=== PATIENT | female | born 1965 | race Caucasian/White ===

== ENCOUNTER → 2017-11-26 | Outpatient (CLI) | payer OTHER ==
[~2017-11-26] MED LIST: ABAC300; ALBU.083IS IH; ALBU3IS INH; ALBU90OI6 INH; ALBU90OI61 INH; AMIT50 PO; AMPI500; ASPI325 PO; ASPI81CH PO; ASPI81EC; ASPI81EC PO; AZIT250 PO; Albuterol2.5 MG/0.5 INH; BUDE6HFA INH; Bentyl10 MG PO; Black Cohosh40 M1 PO; Brovana15 MCG/2 M INH; CALCAVITDA PO; CALCIUM 600 +1 EA11 PO; CEPH500 PO; CLON1; CODGUAEL PO; CYAN1000 PO; CYCL10 PO; DIAZ5; DIAZ5 PO; DOC250 PO; FISH1000 PO; FLUSAL2505 IH; FLUSAL2505 INH; FLUSAL5005; FURO20 PO; FURO40 PO; Ferrous Sulfat325 MG PO; Fish Oil 10001000 MG PO; Flexi Joint Ta1 EAC1 PO; Fludrocortison0.1 MG PO; GABA100 PO; GLUC500; HYDACE5; HYDACE5 PO; HYDMOR2; HYDR1TAB94 PO; IRON150C PO; ISOMON30 PO; Imdur30 MG PO; KETO10 PO; L-LYSINE500 MG PO; METO25 PO; METO25ER PO; Mobic15 MG PO; NAPR500; NAPR500 PO; NAPR550 PO; NICO21TP; NICO7; NITR.4SL SL; NUTRISOURCE FI205 GM PO; OMEP20ER PO; OXYACE5T PO; OXYB5 PO; Omeprazole20 M1 PO; PARO20; POTCHL20ER PO; PRAVASTATIN PO; PRED20 PO; PROACE100 PO; PROC5; PROM25; PROM25 PO; Perforomis20 MCG/2 M; Pravachol40 MG PO; Prednisone20 MG PO; RANI150 PO; RXLORA1 PO; SIMETHICONE125 MG PO; SUCR1 PO; TIOT18 IH; TIOT18 INH; TIOT18 PO; TOLT2ER PO; TOLT4 PO; Vitamin B Comple1 EA PO; [UNRECOGNIZED DRUG - OTHER] PO
[2017-11-26 15:27] LABS: BASOPHILS ABSOLUTE AUTO 0.04 K/mm3 (0.00-0.23); BASOPHILS PERCENT AUTO 1 % (0-2); EOSINOPHILS ABSOLUTE AUTO 0.13 K/mm3 (0.00-0.68); EOSINOPHILS PERCENT AUTO 2 % (0-6); Hematocrit 41.6 % (33.0-51.0); Hemoglobin 14.3 g/dL (11.5-16.0); IMMATURE GRAN ABSOLUTE AUTO 0.02 K/mm3 (0.00-0.10); IMMATURE GRAN PERCENT AUTO 0 % (0-1); LYMPHOCYTES ABSOLUTE AUTO 3.22 K/mm3 (0.84-5.20); LYMPHOCYTES PERCENT AUTO 40 % (21-46); MONOCYTES ABSOLUTE AUTO 0.61 K/mm3 (0.16-1.47); MONOCYTES PERCENT AUTO 8 % (4-13); Mean Corpuscular HGB 31.5 pg (26.0-34.0); Mean Corpuscular HGB Conc 34.4 g/dL (31.5-36.5); Mean Corpuscular Volume 92 fL (80-100); Mean Platelet Volume 9.6 fL (9.1-12.4); NEUTROPHILS ABSOLUTE AUTO 3.99 K/mm3 (1.96-9.15); NEUTROPHILS PERCENT AUTO 50 % (41-73); Platelet Count 298 K/mm3 (150-400); RDW Coefficient Variation 11.7 % (11.7-14.2); Red Blood Cell Count 4.54 M/mm3 (3.80-5.20); White Blood Cell Count 8.01 K/mm3 (4.00-11.30)
[2017-11-26 15:43] LABS: Anion Gap 11 mmol/L (6-16); Blood Urea Nitrogen 11 mg/dL (8-24); Bun/Creatinine Ratio 13.8 (12.0-20.0); CO2, Blood 27 mmol/L (21-32); Calcium, Blood 9.3 mg/dL (8.5-10.1); Chloride, Blood 103 mmol/L (98-108); Glomerular Filtration Rate >60 (60-); Glucose, Blood 90 mg/dL (70-99); Sodium, Blood 141 mmol/L (136-145)
[2017-11-26 15:44] LABS: Troponin I <0.017 ng/mL (0.000-0.040)
== END | disposition home or self-care (01) ==
LOC: LAB EV 15:20 → LAB SHORT 15:20
PROVIDERS: Family Medicine
DX: R07.9 Chest pain, unspecified (principal)
CPT/HCPCS: 80048; 83880; 84484; 85025; 85379

== ENCOUNTER → 2019-09-16 | Outpatient (CLI) | payer OTHER | END | disposition home or self-care (01) | LOC: LAB SHORT 15:10 → LAB 15:10 | DX: N39.0 Urinary tract infection, site not specified (principal) | CPT/HCPCS: 87086 ==

== ENCOUNTER → 2019-09-20 | Outpatient (CLI) | payer OTHER ==
[2019-09-20 17:02] LABS: Influenza A Negative (NEGATIVE); Influenza B Negative (NEGATIVE)
== END | disposition home or self-care (01) ==
LOC: LAB SHORT 16:07 → LAB 16:07
PROVIDERS: Family Medicine
DX: R05 Cough (principal)
CPT/HCPCS: 87804

== ENCOUNTER 2020-01-18 07:16 | Day surgery (SDC) | payer OTHER ==
[~2020-01-18] VITALS: Ht 160 cm; Wt 86.7 kg
[~2020-01-18 07:16] MED LIST changes: +ATOR20 PO; +CONEST.625 PO; +DAIRY RELIE3000 UNIT PO; +DELTASONE20 MG PO; +FAMO20 PO; +FLUT.05NI; +GABA300; +GABA600 PO; +Garlic1 EAC1 PO; +IMITREX25 MG PO; +MONT10T PO; +MULTIVITAMINS1 EAC3 PO; +ONDA4 PO; +PANCREAZE DR 11 EAC2; +PANT40 PO; +PREMARIN; +SUCRALFATE1 G1 PO; +TIZANIDINE HCL2 MG PO; +VALA500 PO; +ZYRTEC10 M2 PO
--- NOTE | 2020-01-18 08:22 | NUR ---
PT AMBULATORY INTO ENDO 2 FOR PREOP. History, Chart, Medications and Allergies reviewed before start of procedure. Lungs clear T/O to Auscultation. Patient confirms NPO status and agrees with scheduled surgery. Patient States Post-Procedure ride home has been arranged.
--- NOTE | 2020-01-18 08:59 | NUR ---
01/18/20 0859 Concha Hughes History, Chart, Medications and Allergies reviewed before start of procedure.NPATIENT CONFIRMS NPO STATUS AND AGREES WITH SCHEDULED PROCEDURE.MONITOR INTACT WITH CONTINUOUS PULSE OXIMETRY AND INTERMITTENT BP. O2 VIA N/C INTACT THROUGHOUT SEDATION/PROCEDURE. 3-LEAD EKG REVIEWED WITH PHYSICIAN PRIOR TO START OF PROCEDURE.
--- NOTE | 2020-01-18 10:15 | NUR ---
PT TO STEP. C/O MILD CHEST DISCOMFORT. STATES BREATHING IS AT BASELINE. SATS 94% ON 3L O2 VIA NC. LUNG SOUNDS CLEAR, DIMISNIHSED T/O.
--- NOTE | 2020-01-18 10:20 | NUR ---
O2 SATS 95%, O2 DECREASED TO 2LPM. DR. VIERA IN TO SPEAK WITH PATIENT.
--- NOTE | 2020-01-18 11:10 | NUR ---
WRITTEN AND VERBAL D/C INSTICTIONS GIVEN TO PT WITH STATED UNDERSTANDING.
== END 2020-01-18 23:17 | disposition home or self-care (01) ==
LOC: ORSCMMR 07:16 → ORD 08:30 → ORSCMMR 08:30
PROVIDERS: Internal Medicine Critical Care Medicine
PROC: 0BJ08ZZ Inspection of Tracheobronchial Tree, Via Natural or Artificial Opening Endoscopic (ICD-10-PCS; principal; 2020-01-18 08:30)
DX: J98.11 Atelectasis (principal); J98.09 Other diseases of bronchus, not elsewhere classified; J44.9 Chronic obstructive pulmonary disease, unspecified; Z87.891 Personal history of nicotine dependence; Z99.81 Dependence on supplemental oxygen; G47.33 Obstructive sleep apnea (adult) (pediatric); Z79.899 Other long term (current) drug therapy
CPT/HCPCS: 94640; 94660; J0171; J2250; J3010; J7120

== ENCOUNTER 2020-04-28 15:04 | Inpatient (IN) | payer OTHER ==
[~2020-04-28] VITALS: Ht 160 cm; Wt 86.6 kg
[~2020-04-28 15:04] MED LIST changes: -ASPI81CH PO; -Albuterol2.5 MG/0.5 INH; +Aspirin EC81 MG PO; +MULTI VITAMIN1 EACH PO; -MULTIVITAMINS1 EAC3 PO; +Ventolin5 MG/1 ML INH
[2020-04-28 15:54] LABS: BASOPHILS ABSOLUTE AUTO 0.03 K/mm3 (0.00-0.23); BASOPHILS PERCENT AUTO 0 % (0-2); EOSINOPHILS ABSOLUTE AUTO 0.02 K/mm3 (0.00-0.68); EOSINOPHILS PERCENT AUTO 0 % (0-6); Hematocrit 43.8 % (33.0-51.0); Hemoglobin 14.7 g/dL (11.5-16.0); IMMATURE GRAN ABSOLUTE AUTO 0.03 K/mm3 (0.00-0.10); IMMATURE GRAN PERCENT AUTO 0 % (0-1); LYMPHOCYTES ABSOLUTE AUTO 1.39 K/mm3 (0.84-5.20); LYMPHOCYTES PERCENT AUTO 16 % (21-46); MONOCYTES ABSOLUTE AUTO 0.75 K/mm3 (0.16-1.47); MONOCYTES PERCENT AUTO 8 % (4-13); Mean Corpuscular HGB 30.9 pg (26.0-34.0); Mean Corpuscular HGB Conc 33.6 g/dL (31.5-36.5); Mean Corpuscular Volume 92 fL (80-100); Mean Platelet Volume 9.8 fL (9.1-12.4); NEUTROPHILS ABSOLUTE AUTO 6.72 K/mm3 (1.96-9.15); NEUTROPHILS PERCENT AUTO 75 % (41-73); Platelet Count 227 K/mm3 (150-400); RDW Coefficient Variation 11.6 % (11.7-14.2); RDW Standard Deviation 39.2 fL (35.1-46.3); Red Blood Cell Count 4.75 M/mm3 (3.80-5.20); White Blood Cell Count 8.94 K/mm3 (4.00-11.30)
[2020-04-28 16:20] LABS: Alanine Aminotransfer (ALT/SGP 63 U/L (12-78); Albumin/Globulin Ratio 1.1 (0.8-1.8); Alk Phos 112 U/L (50-136); Anion Gap 7 mmol/L (6-16); Aspartate Aminotrans (AST/SGOT 40 U/L (12-37); Bilirubin, Total 0.9 mg/dL (0.1-1.0); Blood Urea Nitrogen 7 mg/dL (8-24); CO2, Blood 27 mmol/L (21-32); Calcium, Blood 8.9 mg/dL (8.5-10.1); Chloride, Blood 104 mmol/L (98-108); Creatinine, Blood 0.87 mg/dL (0.40-1.00); Globulin, Blood 3.6 g/dL (2.2-4.0); Glomerular Filtration Rate >60 (60-); Glucose, Blood 104 mg/dL (70-99); Potassium, Blood 3.7 mmol/L (3.5-5.5); Sodium, Blood 138 mmol/L (136-145); Total Protein, Blood 7.6 g/dL (6.4-8.2)
[2020-04-28 16:57] LABS: Adenovirus Not Detected (NOT DETECT); Bordetella pertussis Not Detected (NOT DETECT); Chlamydophila pneumoniae Not Detected (NOT DETECT); Coronavirus 229E Not Detected (NOT DETECT); Coronavirus HKU1 Not Detected (NOT DETECT); Coronavirus NL63 Not Detected (NOT DETECT); Coronavirus OC43 Not Detected (NOT DETECT); Human Metapneumovirus Not Detected (NOT DETECT); Human Rhinovirus/Enterovirus Not Detected (NOT DETECT); Influenza A/2009-H1 Not Detected (NOT DETECT); Influenza A/H1 Not Detected (NOT DETECT); Influenza A/H3 Not Detected (NOT DETECT); Influenza B Not Detected (NOT DETECT); Mycoplasma pneumoniae Not Detected (NOT DETECT); Parainfluenza Virus 1 Not Detected (NOT DETECT); Parainfluenza Virus 2 Not Detected (NOT DETECT); Parainfluenza Virus 3 Not Detected (NOT DETECT); Parainfluenza Virus 4 Not Detected (NOT DETECT); Respiratory Syncytial Virus Not Detected (NOT DETECT); SARS-Cov-2 (COVID-19), BioFire Not Detected (NOT DETECT)
[2020-04-28] MEDS ORDERED: Lopressor 50 mg50 MG PO (17:05)
[2020-04-28] MEDS ORDERED: PEPCID40 MG PO (17:05)
[2020-04-28] MEDS ORDERED: PANCREAZE DR 21 EAC1 PO ×4 (17:06→17:07)
[2020-04-28] MEDS ORDERED: NEURONTIN300 MG PO (17:08)
[2020-04-28] MEDS ORDERED: BUDE.25 INH (17:08)
[2020-04-28] MEDS ORDERED: AZIT250 PO (17:08)
[2020-04-28] MEDS ORDERED: Fludrocortison0.1 MG PO (17:09)
[2020-04-28] MEDS ORDERED: Bentyl10 MG PO (17:13)
--- NOTE | 2020-04-29 04:05 | NUR ---
MANAGER ASSET MANAGEMENT SUMMARY ALERT AND ORIENTED, INDEPENDENT IN ROOM. APPEARED TO SLEEP T/O NIGHT. CONTINOUS BIOX IN PLACE WITH SATS RUNNING IN THE LOW TO MID 90'S. COMPLIANT WITH CPAP. DENIES PAIN OR DISCOMFORT. NO ACUTE CHANGES AT THIS TIME. BED IN LOWEST POSITION WITH CALL LIGHT IN REACH. WILL CONTINUE TO MONITOR AND REPORT TO ONCOMING RN.
--- NOTE | 2020-04-29 14:56 | NUR ---
SHIFT SUMMARY PT AWAKE AT START OF SHIFT, UP INDEPENDENTLY IN RM AND TO BTHRM. ADMITTED LAST NIGHT FOR COPD EXAC. PT REPORTED BREATHING MUCH BETTER TODAY THAN WHEN SHE CAME IN. PT REPORTED THAT HER O2 SATS DROP OCCASSIONALLY TO LOW 90'S, BUT THAT SHE IS "PRETTY MUCH BACK TO BASELINE". NO FURTHER FEVERS TO PRESENT THIS SHIFT. DR WASSERMAN IN TO SEE PT THIS AM. NO NEW ORDERS. PT RECEIVING ABX AND RT TX'S. IN TO VISIT THIS AFTERNOON. NO C/O. CALL LT IN REACH.
--- NOTE | 2020-04-30 03:54 | NUR ---
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 INDEPENDENT IN ROOM. CONTINOUS BIOX IN PLACE, O2 SATS RUNNING IN MID 90'S. COMPLIANT WITH CPAP. DENIES PAIN OR DISCOMFORT. BREATHING IS UNLABORED. NO ACUTE CHANGES AT THIS TIME. BED IN LOWEST POSITION WITH CALL LIGHT IN REACH. WILL CONTINUE TO MONITOR AND REPORT TO ONCOMING RN.
[2020-04-30] MEDS ORDERED: PRED20 PO (11:39)
--- NOTE | 2020-04-30 13:08 | NUR ---
PT DISCHARGED FROM THE UNIT. IV REMOVED. DISCHARGE INSTRUCTIONS REVIEWED. FOLLOW UP APT SCHEDULED WITH PRIMARY CARE PROVIDER. MEDICATIONS FAXED TO [facility]. PT LEFT VIA WHEEL CHAIR WITH
== END 2020-04-30 12:30 | disposition home or self-care (01) | DRG 189 ==
LOC: ER 15:04 → MEDS 18:53 → ENPENDDIS 04-30 10:38 → MEDS 04-30 12:30
PROVIDERS: Emergency Medicine; Physician Assistant; ADMIT Internal Medicine
DX: J96.01 Acute respiratory failure with hypoxia (principal); J43.9 Emphysema, unspecified; Z20.828 Contact with and (suspected) exposure to other viral communicable diseases; R50.9 Fever, unspecified; K21.9 Gastro-esophageal reflux disease without esophagitis; I25.10 Atherosclerotic heart disease of native coronary artery without angina pectoris; I73.9 Peripheral vascular disease, unspecified; I95.1 Orthostatic hypotension; M81.0 Age-related osteoporosis without current pathological fracture; Z87.891 Personal history of nicotine dependence; Z95.820 Peripheral vascular angioplasty status with implants and grafts; Z79.899 Other long term (current) drug therapy; Z79.82 Long term (current) use of aspirin; Z79.51 Long term (current) use of inhaled steroids
CPT/HCPCS: 0202U; 36415; 71045; 71260; 80053; 82728; 83880; 84145; 84484; 85025; 85379; 93005; 93010; 94640; 94660; 94762; 96365; 96375; 99285-25; A9270-GY; J0696; J1650; J2920; J2930; Q9967

== ENCOUNTER 2021-02-08 14:40 | Emergency (ER) | payer OTHER ==
[~2021-02-08] VITALS: Ht 160 cm; Wt 77.1 kg
[~2021-02-08 14:40] MED LIST changes: +BUDE.25 INH; +Lopressor 50 mg50 MG PO; +NEURONTIN300 MG PO; +PANCREAZE DR 21 EAC1 PO; +PEPCID40 MG PO
[2021-02-08 15:13] LABS: BASOPHILS ABSOLUTE AUTO 0.04 K/mm3 (0.00-0.23); BASOPHILS PERCENT AUTO 0 % (0-2); EOSINOPHILS ABSOLUTE AUTO 0.13 K/mm3 (0.00-0.68); EOSINOPHILS PERCENT AUTO 1 % (0-6); Hematocrit 45.8 % (33.0-51.0); Hemoglobin 15.6 g/dL (11.5-16.0); IMMATURE GRAN ABSOLUTE AUTO 0.01 K/mm3 (0.00-0.10); IMMATURE GRAN PERCENT AUTO 0 % (0-1); LYMPHOCYTES ABSOLUTE AUTO 4.53 K/mm3 (0.84-5.20); LYMPHOCYTES PERCENT AUTO 47 % (21-46); MONOCYTES ABSOLUTE AUTO 0.86 K/mm3 (0.16-1.47); MONOCYTES PERCENT AUTO 9 % (4-13); Mean Corpuscular HGB 31.5 pg (26.0-34.0); Mean Corpuscular HGB Conc 34.1 g/dL (31.5-36.5); Mean Corpuscular Volume 93 fL (80-100); Mean Platelet Volume 9.6 fL (9.1-12.4); NEUTROPHILS ABSOLUTE AUTO 4.18 K/mm3 (1.96-9.15); NEUTROPHILS PERCENT AUTO 43 % (41-73); Platelet Count 278 K/mm3 (150-400); RDW Coefficient Variation 11.9 % (11.7-14.2); RDW Standard Deviation 40.9 fL (35.1-46.3); Red Blood Cell Count 4.95 M/mm3 (3.80-5.20); White Blood Cell Count 9.75 K/mm3 (4.00-11.30)
[2021-02-08 15:40] LABS: Alanine Aminotransfer (ALT/SGP 122 U/L (12-78); Albumin, Blood 4.3 g/dL (3.4-5.0); Albumin/Globulin Ratio 1.2 (0.8-1.8); Alk Phos 129 U/L (50-136); Anion Gap 5 mmol/L (6-16); Aspartate Aminotrans (AST/SGOT 86 U/L (12-37); Bilirubin, Total 0.3 mg/dL (0.1-1.0); Blood Urea Nitrogen 7 mg/dL (8-24); Bun/Creatinine Ratio 8.6 (12.0-20.0); CO2, Blood 28 mmol/L (21-32); Calcium, Blood 9.1 mg/dL (8.5-10.1); Chloride, Blood 109 mmol/L (98-108); Creatinine, Blood 0.82 mg/dL (0.40-1.00); Globulin, Blood 3.5 g/dL (2.2-4.0); Glomerular Filtration Rate >60 (60-); Glucose, Blood 95 mg/dL (70-99); Potassium, Blood 4.2 mmol/L (3.5-5.5); Sodium, Blood 142 mmol/L (136-145); Total Protein, Blood 7.8 g/dL (6.4-8.2); Troponin I <0.015 ng/mL (0.000-0.040)
[2021-02-08] MEDS ORDERED: PRED20 PO (17:17)
== END 2021-02-08 17:38 | disposition home or self-care (01) ==
LOC: ER 14:40
PROVIDERS: Physician Assistant
DX: J45.901 Unspecified asthma with (acute) exacerbation (principal); I50.9 Heart failure, unspecified; J43.9 Emphysema, unspecified; K21.9 Gastro-esophageal reflux disease without esophagitis; Z79.899 Other long term (current) drug therapy; Z79.82 Long term (current) use of aspirin
CPT/HCPCS: 36415; 71045; 80053; 84484; 85025; 93005; 93010; 94640; 94644; 96365; 96366; 96375; 99284-25; J0780; J2930; J3475

== ENCOUNTER → 2022-04-08 | Outpatient (CLI) | payer OTHER | END | disposition home or self-care (01) | LOC: LAB SHORT 11:15 | DX: L72.3 Sebaceous cyst (principal) | CPT/HCPCS: 87081 ==

== ENCOUNTER → 2023-09-17 | Outpatient (CLI) | payer OTHER ==
[2023-09-18 14:53] LABS: C DIFFICILE DNA NEGATIVE (Negative)
[2023-09-20 17:41] LABS: LACTOFERRIN,FECAL BY ELISA Negative (Negative)
[2023-09-21 11:22] LABS: CRYPTOSPORIDIUM ANTIGEN BY EIA Negative (Negative)
[2023-09-21 11:26] LABS: GIARDIA ANTIGEN BY EIA Negative (Negative)
[2023-09-22 02:52] LABS: PANCREATIC ELASTASE,FECAL <10 ug/g (>=100)
[2023-09-23 08:50] LABS: OVA AND PARASITE,FECAL INTERP Negative (Negative)
== END ==
LOC: LAB EV 22:00 → LAB SHORT 22:00
PROVIDERS: Physician Assistant
DX: Z12.11 Encounter for screening for malignant neoplasm of colon (principal)
CPT/HCPCS: 82653; 83630; 87015; 87045; 87046; 87177; 87205; 87209; 87328; 87329; 87493; 87899

== ENCOUNTER 2024-06-06 13:20 | Emergency (ER) | payer OTHER ==
[~2024-06-06] VITALS: Ht 160 cm; Wt 81.7 kg
[~2024-06-06 13:20] MED LIST changes: +CLOP75 PO; +HYDROCODONE-AC1 EA10 PO; +METOPROLOL TART25 MG PO
[2024-06-06] MEDS ORDERED: Ipratropium/Albuterol SulF 2.5-0.5MG/3 ML Amp INH ONE (14:50)
[2024-06-06 15:00] VITALS: BP 142/65
== END 2024-06-06 15:38 | disposition home or self-care (01) ==
LOC: ER 13:20
DX: T17.228A Food in pharynx causing other injury, initial encounter (principal); W44.F3XA Food entering into or through a natural orifice, initial encounter; J43.9 Emphysema, unspecified; I50.9 Heart failure, unspecified; Z79.899 Other long term (current) drug therapy; Z79.82 Long term (current) use of aspirin
CPT/HCPCS: 93005; 93010; 94640; 99285-25

== ENCOUNTER → 2024-08-05 | Outpatient (CLI) | payer OTHER ==
[2024-08-05 14:33] LABS: BASOPHILS ABSOLUTE AUTO 0.01 K/mm3 (0.00-0.23); BASOPHILS PERCENT AUTO 0 % (0-2); EOSINOPHILS PERCENT AUTO 0 % (0-6); Hematocrit 46.1 % (33.0-51.0); Hemoglobin 15.4 g/dL (11.5-16.0); IMMATURE GRAN ABSOLUTE AUTO 0.02 K/mm3 (0.00-0.10); IMMATURE GRAN PERCENT AUTO 0 % (0-1); LYMPHOCYTES ABSOLUTE AUTO 1.07 K/mm3 (0.84-5.20); LYMPHOCYTES PERCENT AUTO 17 % (21-46); MONOCYTES ABSOLUTE AUTO 0.23 K/mm3 (0.16-1.47); MONOCYTES PERCENT AUTO 4 % (4-13); Mean Corpuscular HGB Conc 33.4 g/dL (31.5-36.5); Mean Corpuscular Volume 93 fL (80-100); Mean Platelet Volume 9.9 fL (9.1-12.4); NEUTROPHILS ABSOLUTE AUTO 4.97 K/mm3 (1.96-9.15); NEUTROPHILS PERCENT AUTO 79 % (41-73); Platelet Count 205 K/mm3 (150-400); RDW Coefficient Variation 12.4 % (11.7-14.2); RDW Standard Deviation 42.3 fL (35.1-46.3); Red Blood Cell Count 4.96 M/mm3 (3.80-5.20)
[2024-08-05 14:42] LABS: Albumin, Blood 4.2 g/dL (3.4-5.0); Albumin/Globulin Ratio 1.1 (0.8-1.8); Bilirubin, Total 0.6 mg/dL (0.1-1.0); Bun/Creatinine Ratio 12.4 (12.0-20.0); Calcium, Blood 8.6 mg/dL (8.5-10.1); Creatinine, Blood 1.05 mg/dL (0.40-1.00); Globulin, Blood 3.8 g/dL (2.2-4.0); Potassium, Blood 4.3 mmol/L (3.5-5.5)
== END ==
LOC: LAB SHORT 14:28
PROVIDERS: Internal Medicine
DX: J44.1 Chronic obstructive pulmonary disease with (acute) exacerbation (principal)
CPT/HCPCS: 80053; 83880; 85025

== ENCOUNTER 2024-08-11 15:05 | Inpatient (IN) | payer OTHER ==
[~2024-08-11] VITALS: Ht 160 cm; Wt 78.1 kg
[2024-08-11] MEDS ORDERED: Albuterol 2.5 MG/3 ML VIAL INH ONE (15:35)
[2024-08-11 15:49] LABS: BASOPHILS ABSOLUTE AUTO 0.02 K/mm3 (0.00-0.23); BASOPHILS PERCENT AUTO 0 % (0-2); EOSINOPHILS ABSOLUTE AUTO 0.01 K/mm3 (0.00-0.68); EOSINOPHILS PERCENT AUTO 0 % (0-6); Hematocrit 41.7 % (33.0-51.0); Hemoglobin 14.3 g/dL (11.5-16.0); IMMATURE GRAN ABSOLUTE AUTO 0.09 K/mm3 (0.00-0.10); IMMATURE GRAN PERCENT AUTO 1 % (0-1); LYMPHOCYTES ABSOLUTE AUTO 2.43 K/mm3 (0.84-5.20); LYMPHOCYTES PERCENT AUTO 20 % (21-46); MONOCYTES ABSOLUTE AUTO 0.41 K/mm3 (0.16-1.47); MONOCYTES PERCENT AUTO 3 % (4-13); Mean Corpuscular HGB 31.8 pg (26.0-34.0); Mean Corpuscular HGB Conc 34.3 g/dL (31.5-36.5); Mean Corpuscular Volume 93 fL (80-100); Mean Platelet Volume 9.5 fL (9.1-12.4); NEUTROPHILS ABSOLUTE AUTO 9.12 K/mm3 (1.96-9.15); NEUTROPHILS PERCENT AUTO 76 % (41-73); Platelet Count 329 K/mm3 (150-400); RDW Standard Deviation 41.2 fL (35.1-46.3); Red Blood Cell Count 4.49 M/mm3 (3.80-5.20); White Blood Cell Count 12.08 K/mm3 (4.00-11.30)
[2024-08-11 16:04] LABS: Base Excess Venous 0.2 mmol/L; Bicarbonate Venous 24.5 mmol/L (24.0-30.0); PCO2 Venous 42.2 mmHg (38-42); pH Blood Venous 7.39 (7.34-7.37)
[2024-08-11 16:14] LABS: Albumin, Blood 3.8 g/dL (3.4-5.0); Albumin/Globulin Ratio 1.3 (0.8-1.8); Bilirubin, Total 0.4 mg/dL (0.1-1.0); Calcium, Blood 8.8 mg/dL (8.5-10.1); Creatinine, Blood 0.69 mg/dL (0.40-1.00); Potassium, Blood 4.1 mmol/L (3.5-5.5); Total Protein, Blood 6.8 g/dL (6.4-8.2)
[2024-08-11 16:37] LABS: Influenza B, PCR NEGATIVE (NEGATIVE); Resp Syncytial Virus, PCR NEGATIVE (NEGATIVE); SARS-Cov-2 (COVID-19) PCR, MMC NEGATIVE (NEGATIVE)
[2024-08-11 16:38] LABS: Influenza A, PCR POSITIVE (NEGATIVE)
[2024-08-11] MEDS ORDERED: Albuterol 2.5 MG/3 ML VIAL INH SCH (17:25)
[2024-08-11] MEDS ORDERED: Ipratropium Bromide INH 0.02% 0.5 mg/2.5ML Vial INH SCH (17:25)
[2024-08-11] MEDS ORDERED: FLU VACC TS2024-25(6MOS UP)/PF 45 MCG/0.5 ML SYRINGE IM SCH (18:35)
[2024-08-11] MEDS ORDERED: Ipratropium/Albuterol SulF 2.5-0.5MG/3 ML Amp INH SCH (18:35)
[2024-08-11 19:20] LABS: Base Excess Venous 2.6 mmol/L; Bicarbonate Venous 26.5 mmol/L (24.0-30.0); PCO2 Venous 40.3 mmHg (38-42); pH Blood Venous 7.43 (7.34-7.37)
[2024-08-11] MEDS ORDERED: Oseltamivir Phosphate 75 MG Cap PO SCH (21:00)
[2024-08-11] MEDS ORDERED: Mometasone/Formoterol MDI 200/5 mcg 13 GM INH SCH (22:05)
[2024-08-11] MEDS ORDERED: Albuterol 2.5 MG/3 ML VIAL INH PRN (22:05)
[2024-08-11] MEDS ORDERED: Tiotropium Bromide 2.5 MCG/ACT MIST INHAL (10 ACT/4 GM) INH SCH (22:05)
[2024-08-12] VITALS (11 sets, daily range): BP systolic 96–130; BP diastolic 54–85
[2024-08-12 05:10] LABS: BASOPHILS ABSOLUTE AUTO 0.01 K/mm3 (0.00-0.23); BASOPHILS PERCENT AUTO 0 % (0-2); EOSINOPHILS PERCENT AUTO 0 % (0-6); Hematocrit 40.2 % (33.0-51.0); Hemoglobin 13.6 g/dL (11.5-16.0); IMMATURE GRAN ABSOLUTE AUTO 0.08 K/mm3 (0.00-0.10); IMMATURE GRAN PERCENT AUTO 1 % (0-1); LYMPHOCYTES ABSOLUTE AUTO 1.87 K/mm3 (0.84-5.20); LYMPHOCYTES PERCENT AUTO 19 % (21-46); MONOCYTES ABSOLUTE AUTO 0.63 K/mm3 (0.16-1.47); MONOCYTES PERCENT AUTO 7 % (4-13); Mean Corpuscular HGB 31.4 pg (26.0-34.0); Mean Corpuscular HGB Conc 33.8 g/dL (31.5-36.5); Mean Corpuscular Volume 93 fL (80-100); Mean Platelet Volume 9.5 fL (9.1-12.4); NEUTROPHILS ABSOLUTE AUTO 7.09 K/mm3 (1.96-9.15); NEUTROPHILS PERCENT AUTO 73 % (41-73); Platelet Count 308 K/mm3 (150-400); RDW Standard Deviation 41.1 fL (35.1-46.3); Red Blood Cell Count 4.33 M/mm3 (3.80-5.20); White Blood Cell Count 9.68 K/mm3 (4.00-11.30)
--- NOTE | 2024-08-12 05:29 | NUR ---
SHIFT SUMMARY ASSUMED CARE OF PT AT 2030. PT IS A/OX4. HEART SOUNDS REGULAR. LUNG SOUNDS TIGHT WITH WHEEZES RT CONSULTED WITH CARE AND PT GIVEN BREATHING TREATMENTS AND STARTED ON AIRVO INITALLY DUE TO WORK OF BREATHING; 50L @35%. PT WOULD DESAT TO 80% O2, RT INFORMED BY PT SHE USUALLY WEARS A CPAP AT HOME. PT STARTED ON CPAP. AT AROUND 0300 PT REFUSED CPAP DUE TO NOT BEING ABLE TO COUGH IN THE MASK. PT DENIED AIRVO DESPITE EDUCATION ON BENIFITS. PT ON 5L NC T/O THE REST OF THE NOC. PT A 1P SBA TO BSC DE TO DYSPNEA AND CORD MANAGEMENT. PT C/O PAIN; HOSPITALIST EJ INFORMED AND DICUSSED WITH PATIENT TREATMENT OPTIONS.
[2024-08-12 06:02] LABS: Bun/Creatinine Ratio 18.2 (12.0-20.0); Calcium, Blood 9.1 mg/dL (8.5-10.1); Creatinine, Blood 0.61 mg/dL (0.40-1.00)
[2024-08-12] MEDS ORDERED: PredniSONE 20 MG Tab PO SCH (09:00)
[2024-08-12] MEDS ORDERED: Enoxaparin 40 MG/0.4 ML SYR SC SCH (09:00)
--- NOTE | 2024-08-12 16:28 | NUR ---
SHIFT SUMMARY: PT ALERT AND ORIENTED X4, ABLE TO FOLLOW COMMANDS AND MAKE NEEDS KNOWN. STRENGTH EQUAL BILATERALLY. BP AND HR STABLE. AFEBRILE. SPO2 >90% ON HEATED HIFLOW 35L 45%. LUNG SOUNDS TIGHT THROUGHOUT, PT BECOMES SHORT OF BREATH WITH MINIMAL ACTIVITY. FLU A POSITIVE, IN DROPLET ISOLATION. ABD DISTENDED, BOWEL SOUNDS +. PT STATES ABNORMAL FROM BASELINE. PULSES STRONG AND EQUAL THROUGHOUT. PT SBA TO AND FROM BSC. NO BM THIS SHIFT. PT WITH CONCERNS OF HOME MEDS NOT BEING RESTARTED. MD HAS YET TO ROUND ON PT AT THIS TIME, TWO CALLS PLACED TO MD, AWAITING CALL BACK. UPDATED PROVIDED ON PT PLAN OF CARE TO DAUGHTER. BED IN LOW, CALL LIGHT IN REACH, WILL REPORT TO ONCOMING RN.
[2024-08-12] MEDS ORDERED: Dicyclomine HCL 10 MG Capsule PO PRN (18:45)
[2024-08-12] MEDS ORDERED: HYDROcodone 5-APAP 325 TAB PO PRN (18:50)
[2024-08-12] MEDS ORDERED: Budesonide 0.25 MG / 2 ML RESP INH SCH (18:55)
[2024-08-12] MEDS ORDERED: TiZANidine HCl 4 MG Tab PO PRN (18:55)
[2024-08-12] MEDS ORDERED: MethylPREDNISolone Sod Succ 125 MG Vial IV SCH (19:00)
[2024-08-12] MEDS ORDERED: Azithromycin 250 MG Tab PO SCH (19:00)
[2024-08-12] MEDS ORDERED: Montelukast Sodium 10 MG Tab PO SCH (21:00)
[2024-08-12] MEDS ORDERED: Atorvastatin 40 MG Tab PO SCH (21:00)
[2024-08-12] MEDS ORDERED: Metoprolol Tartrate 25 MG Tab PO SCH (21:00)
[2024-08-12] MEDS ORDERED: Gabapentin 300 MG Cap PO SCH (21:00)
[2024-08-12] MEDS ORDERED: Benzonatate 100 MG Cap PO PRN (23:40)
[2024-08-13 00:11] VITALS: BP 106/69
[2024-08-13 04:25] VITALS: BP 127/86
--- NOTE | 2024-08-13 04:37 | NUR ---
SHIFT SUMMARY PT A&Ox4 AND ABLE TO MAKE NEEDS KNOWN. IN DROPLET ISO FOR INFLUENZA A. REMAINS ON HEATED HIGH FLOW @ 40LPM WITH O2 SATS >90%. SOB WHILE USING BSC AND NEEDS A FEW MINUTES AT EDGE OF BED TO CATCH BREATH. NO C/O PAIN. HR REMAINS NSR IN THE 70's. PT DOES HAVE DRY COUGH THAT DOES INTERFERE WITH SLEEP AT TIMES. RESIDENT CALLED AND ORDER GIVEN FOR TESSLON PRN. SOLUMEDROL STARTED AND HOME MEDS RESUMED. VSS. BED IN LOWEST POSITION AND CALL LIGHT IN REACH.
[2024-08-13 05:50] LABS: Bun/Creatinine Ratio 22.7 (12.0-20.0); Calcium, Blood 8.9 mg/dL (8.5-10.1); Creatinine, Blood 0.57 mg/dL (0.40-1.00); Potassium, Blood 4.7 mmol/L (3.5-5.5)
[2024-08-13] MEDS ORDERED: Pantoprazole Sodium 40 MG Tab PO SCH (06:00)
[2024-08-13] MEDS ORDERED: Fludrocortisone Acetate 0.1 MG Tab PO SCH (09:00)
[2024-08-13] MEDS ORDERED: Loratadine 10 MG Tab PO SCH (09:00)
[2024-08-13] MEDS ORDERED: Furosemide 20 MG Tab PO SCH (09:00)
[2024-08-13] MEDS ORDERED: Clopidogrel Bisulfate 75 MG Tab PO SCH (09:00)
[2024-08-13] MEDS ORDERED: Fluticasone 0.05% Nasal Spray SCH (09:00)
[2024-08-13 09:15] VITALS: BP 104/74
[2024-08-13 15:39] VITALS: BP 115/83
--- NOTE | 2024-08-13 18:38 | NUR ---
SHIFT SUMMARY PT A&Ox4, CALLS AND COMMUNICATES NEEDS APPROPRIATELY. BP STABLE, SINUS 70's, DENIES CP/PRESSURE. SpO2> 92% 6L VIA NC, REPORTS SOB WITH ACTIVITY. CONTINENT OF URINE, IND TO BSC. DENIES PAIN. C/O COUGH, MANAGED PER EMAR. PT REPORTS FEELING BETTER TODAY THAN PREVIOUS DAYS AND IS HOPEFUL OF GETTING TO GO HOME ON THURSDAY. NO OTHER EVENTS, WILL REPORT TO ONCOMING RN.
[2024-08-13 19:22] VITALS: BP 119/97
--- NOTE | 2024-08-13 19:45 | NUR ---
ASSUMED CARE OF THIS PATIENT AT 1900. KATHIA IS A+O X4, SITTING UP IN BED, PLEASANT AND PARTICIPATES IN CARE. VSS, PATIENT IS ON 5 LITERS NC AT THIS TIME SATTING AT 93% AND ABOVE. PATIENT HAS A DRY HACKING COUGH. PATIENT STATES TO ME SHE HAS BEEN SICK FOR THREE WEEKS PRIOR TO HOSPITILAZTION, BUT IS BEGINING TO FEEL "SLIGHTLY" BETTER. DURING MEDICATION PASS KATHIA ONLY WANTED ONE PILL OF HER PERSCRIBED GABAPENTIN DOSE. CALL LIGHT IN REACH, BED IN LOWEST POSTION.
[2024-08-14] VITALS (7 sets, daily range): BP systolic 98–138; BP diastolic 58–85
--- NOTE | 2024-08-14 06:25 | NUR ---
shift summary PATIENT IS A+O X4, PLEASENT AND COOPERATIVE WITH CARE. SBA TO BSC TO ASSIST W/ LINE MANAGMENT, VOIDING YELLOW COLORED URINE. VSS, PATIENT REMAINS TO 4 LITERS NC AT THIS TIME SATTING AT 93% ON CONTINUES PULSE OX. PATIENT DENIES PAIN AT THIS TIME. SLEPT ON AND OFF ALL NIGHT. IS CURRENTLY SITTING ON IN BED DRINKING COFFEE AND WATCHING TV. CALL LIGHT IN REACH, WILL CONTINYE TO TREAT.
--- NOTE | 2024-08-14 18:02 | NUR ---
SHIFT SUMMARY PT A&Ox4, CALLS AND COMMUNICATES NEEDS APPROPRIATELY. BP STABLE, SINUS 70's, DENIES CP/PRESSURE. SpO2> 92% 2L VIA NC, REPORTS SOB WITH ACTIVITY. CONTINENT OF URINE, IND TO BSC. DENIES PAIN. C/O COUGH, MANAGED PER EMAR. PT REPORTS FEELING BETTER TODAY THAN PREVIOUS DAYS AND IS HOPEFUL OF GETTING TO GO HOME TOMORROW. NO OTHER EVENTS, WILL REPORT TO ONCOMING RN.
[2024-08-14] MEDS ORDERED: MethylPREDNISolone Sod Succ 40 MG VIAL IV SCH (21:00)
[2024-08-14] MEDS ORDERED: GuaiFENesin 100 MG/5 ML 5ML UDC PO PRN (21:50)
[2024-08-15 03:36] VITALS: BP 100/60
[2024-08-15 04:02] LABS: BASOPHILS ABSOLUTE AUTO 0.02 K/mm3 (0.00-0.23); BASOPHILS PERCENT AUTO 0 % (0-2); EOSINOPHILS PERCENT AUTO 0 % (0-6); Hematocrit 42.1 % (33.0-51.0); Hemoglobin 14.1 g/dL (11.5-16.0); IMMATURE GRAN ABSOLUTE AUTO 0.11 K/mm3 (0.00-0.10); IMMATURE GRAN PERCENT AUTO 1 % (0-1); LYMPHOCYTES PERCENT AUTO 7 % (21-46); MONOCYTES ABSOLUTE AUTO 0.68 K/mm3 (0.16-1.47); MONOCYTES PERCENT AUTO 5 % (4-13); Mean Corpuscular HGB 31.6 pg (26.0-34.0); Mean Corpuscular HGB Conc 33.5 g/dL (31.5-36.5); Mean Corpuscular Volume 94 fL (80-100); Mean Platelet Volume 9.4 fL (9.1-12.4); NEUTROPHILS ABSOLUTE AUTO 12.37 K/mm3 (1.96-9.15); NEUTROPHILS PERCENT AUTO 87 % (41-73); Platelet Count 313 K/mm3 (150-400); Red Blood Cell Count 4.46 M/mm3 (3.80-5.20); White Blood Cell Count 14.18 K/mm3 (4.00-11.30)
[2024-08-15 04:29] LABS: Creatinine, Blood 0.58 mg/dL (0.40-1.00); Potassium, Blood 4.2 mmol/L (3.5-5.5)
--- NOTE | 2024-08-15 06:51 | NUR ---
SHIFT SUMMARY ASSUMED CARE OF PT AT 1900. PT A&O4, COOPERATIVE IN CARE AND ABLE TO MAKE NEEDS KNOWN. PT REMAINED ON 2L NC OVERNIGHT AND BP WNL. PT NO LONGER ON TELE. PT REQUESTED ADDITIONAL COUGH AID D/T CONSTANT PRODUCTIVE COUGH. NOTIFIED MD, ORDERS ALSO GIVEN FOR AM LABS. PT DENIES SOB AND CP/PRESSURE. BED IN LOWEST POSITION AND CALL LIGHT WITHIN REACH.
[2024-08-15 08:05] VITALS: BP 159/127
--- NOTE | 2024-08-15 08:16 | NUR ---
MEDICATION patient requesting only 300mg of her oral morning gabapentin instead of the 900mg dose. this rn gave her 300mg oral gabapentin and returned the remaining 600mg oral gabapentin to the [facility]. plan to disucss with md doing 300mg oral gabapentin three times a day per patient request.
[2024-08-15 08:18] VITALS: BP 127/65
--- NOTE | 2024-08-15 09:31 | NUR ---
am note this rn assumed care at 0700. vital signs stable. spo2 >90% on 2l nc. patient reports shortness of breath with exertion. patient is alert and oriented x4. neuro is intact. perrla. patient is able to make needs known and uses call light appropriately. denies pain or chest pain/pressure. patient is able to use bedside comode independently. skin is clean dry and intact. lung sounds throughout are tight coarse wheezes. patient has a productive cough that is thick and brown in appearance. see shift assessment for further detials. bed bath and linen change.
[2024-08-15] MEDS ORDERED: FAMO10 PO (10:24)
[2024-08-15] MEDS ORDERED: IPRAT-ALBUT 0.5-3 ML INH (10:25)
[2024-08-15] MEDS ORDERED: Isosorbide Mono30 MG PO (10:26)
[2024-08-15] MEDS ORDERED: PREG75 PO (10:28)
[2024-08-15] MEDS ORDERED: ZENPEP DR 40,01 EACH PO (10:31)
[2024-08-15 12:30] VITALS: BP 115/68
--- NOTE | 2024-08-15 12:34 | NUR ---
UPDATE md capps in to see patient around 1100. updated her on patient medications being complete and accurate, and that patient takes lyrica not gabapentin. md capps said she will correct and update meds.
[2024-08-15] MEDS ORDERED: Pregabalin 75 MG Cap PO SCH (14:00)
[2024-08-15 15:18] VITALS: BP 115/63
--- NOTE | 2024-08-15 17:28 | NUR ---
shift summary patient vitals remain stable. neuro remains unchanged. no acute changes this shift. patient medications changed per md capps to match patient home meds. see previous notes.
[2024-08-15 21:19] VITALS: BP 136/73
[2024-08-16 04:26] VITALS: BP 132/82
--- NOTE | 2024-08-16 06:24 | NUR ---
SHIFT SUMMARY ASSUMED CARE OF PT AT 1900. PT A&O4, COOPERATIVE IN CARE AND ABLE TO EXPRESS NEEDS. PT ONLY REPORTED SOB WITH EXERTION TO BSC; NO CP/PRESSURE REPORTED. VSS AND PT MAINTAINED O2 W 2L NC. BED IN LOWEST POSITION AND CALL LIGHT WITHIN REACH.
[2024-08-16 07:21] VITALS: BP 148/108
[2024-08-16] MEDS ORDERED: Famotidine 20 MG Tab PO SCH (09:00)
[2024-08-16] MEDS ORDERED: Isosorbide Mononitrate 30 MG TABCR PO SCH (09:00)
--- NOTE | 2024-08-16 10:06 | NUR ---
am note this rn assumed care at 0700. vital signs stable. spo2 >90% on room air. patient is alert and oriented x4. neuro is intact. patient is able to make needs known and uses call light appropriately. denies pain or chest pain/pressure. patient becomes short of breath with exertion. lung sounds are coarse, and left upper lobe coarse with dim exp wheeze. see shift assessment for further detials. patient walked out in the hallway with respiratory care for home oxygen eval. see respiratory assessment for detials.
[2024-08-16] MEDS ORDERED: Q-Tussin100 MG/5 M PO (11:49)
[2024-08-16] MEDS ORDERED: Deltasone 10 mg10 MG PO (11:51)
--- NOTE | 2024-08-16 12:47 | NUR ---
discharge this rn went over discharge education and follow up appointments. new medication cough syrup and steriods. this rn went over the instructions for takin both medications and patient repeated it back to this rn. patient left with all belongings and in no distress.
== END 2024-08-16 12:56 | disposition home or self-care (01) | DRG 193 ==
LOC: ER 15:05 → ERHOLD 18:30 → PCU 18:30
PROVIDERS: Internal Medicine; Student in an Organized Health Care Education/Training Program; ADMIT Student in an Organized Health Care Education/Training Program
PROC: 5A09357 Assistance with Respiratory Ventilation, Less than 24 Consecutive Hours, Continuous Positive Airway Pressure (ICD-10-PCS; principal; 2024-08-11)
DX: J10.1 Influenza due to other identified influenza virus with other respiratory manifestations (principal); J96.01 Acute respiratory failure with hypoxia; J96.02 Acute respiratory failure with hypercapnia; J44.1 Chronic obstructive pulmonary disease with (acute) exacerbation; J45.901 Unspecified asthma with (acute) exacerbation; E66.2 Morbid (severe) obesity with alveolar hypoventilation; I50.32 Chronic diastolic (congestive) heart failure; I25.10 Atherosclerotic heart disease of native coronary artery without angina pectoris; I11.0 Hypertensive heart disease with heart failure; M54.9 Dorsalgia, unspecified; K21.9 Gastro-esophageal reflux disease without esophagitis; G89.29 Other chronic pain; E78.5 Hyperlipidemia, unspecified; J43.9 Emphysema, unspecified; Z86.19 Personal history of other infectious and parasitic diseases; Z86.711 Personal history of pulmonary embolism; Z79.82 Long term (current) use of aspirin; Z79.899 Other long term (current) drug therapy
CPT/HCPCS: 0241U; 36415; 71045; 80048; 80053; 82803; 84484; 85025; 93005; 93010; 94640; 94644; 94645; 94660; 94664; 94761; 94762; 99285-25; A9270; J1650; J2919; J7512